=== PATIENT | male | born 1980 | race Caucasian/White ===

== ENCOUNTER 2017-02-21 10:37 | Emergency (ER) | payer BC ==
[2017-02-21 11:00] LABS: BILIRUBIN,URINE NEGATIVE (NEGATIVE); CLARITY,URINE CLEAR (CLEAR); GLUCOSE, URINE (UA) NEGATIVE (NEGATIVE); KETONES,URINE (UA) NEGATIVE (NEGATIVE); LEUKOCYTE ESTERASE, URINE NEGATIVE (NEGATIVE); NITRITE,URINE NEGATIVE (NEGATIVE); OCCULT BLOOD,URINE NEGATIVE (NEGATIVE); PROTEIN,URINE NEGATIVE (NEGATIVE); UROBILINOGEN,URINE 0.2 (NORMAL) E.U./dL (NORMAL)
[2017-02-21 11:11] LABS: BASOPHILS # (AUTO) 0.1 10^3/uL (0.0-0.1); BASOPHILS % (AUTO) 1.4 %; EOSINOPHILS # (AUTO) 0.1 10^3/uL (0.0-0.7); EOSINOPHILS % (AUTO) 1.8 %; HGB - HEMOGLOBIN 16.2 g/dL (14.0-18.0); LYMPHOCYTES # (AUTO) 2.1 10^3/uL (1.5-3.5); LYMPHOCYTES % (AUTO) 35.3 %; MEAN CORPUSCULAR HEMOGLOBIN 31.8 pg (27.0-31.0); MEAN CORPUSCULAR HGB CONC 34.3 g/dL (32.0-36.0); MEAN CORPUSCULAR VOLUME 92.7 fL (80.0-94.0); MEAN PLATELET VOLUME 8.3 fL (7.4-11.4); MONOCYTES # (AUTO) 0.8 10^3/uL (0.0-1.0); MONOCYTES % (AUTO) 13.6 %; NEUTROPHILS # (AUTO) 2.9 10^3/uL (1.5-6.6); NEUTROPHILS % (AUTO) 47.9 %; PLT - PLATELET COUNT 213 10^3/uL (130-450); RED CELL DISTRIBUTION WIDTH 12.5 % (12.0-15.0)
[2017-02-21 11:23] LABS: ALBUMIN 4.7 g/dL (3.2-5.5); ALBUMIN/GLOBULIN RATIO 1.5 (1.0-2.2); BILIRUBIN,TOTAL 1.1 mg/dL (0.2-1.0); CALCIUM 9.1 mg/dL (8.5-10.3); TOTAL PROTEIN 7.8 g/dL (6.7-8.2)
--- NOTE | 2017-02-21 12:20 | ED Physician Documentation ---
PD HPI ABD PAIN - Stated complaint Stated Complaint: ABD PX - Chief complaint Chief Complaint: Abd Pain - History obtained from History obtained from: Patient - History of Present Illness Timing - onset: Other (About a week ago at work he was laying on his stomach and felt a pinch in the right upper quadrant ever since then he has had persistent pain that is better when upright and worse when laying flat. It does not of some seem to be associated with eating. He has not had any changes in his bowel movements. There is slight nausea but no vomiting. He has no history of abdominal surgeries. There is no associated fever. The pain is moved towards the back a little bit, but still on the right side.) Review of Systems Constitutional: denies: Fever, Chills Cardiac: denies: Chest pain / pressure, Palpitations Respiratory: denies: Dyspnea, Cough GI: reports: Abdominal Pain, Nausea, Diarrhea (Few days ago, gone). denies: Vomiting, Constipation PD PAST MEDICAL HISTORY - Past Medical History Past Medical History: No - Past Surgical History Past Surgical History: No - Present Medications Home Medications: Ambulatory Orders Medication Instructions Recorded Confirmed No Known Home Medications [No 02/21/17 02/21/17 Known Home Medications] - Allergies Allergies/Adverse Reactions: Allergies Allergy/AdvReac Type Severity Reaction Status Date / Time No Known Drug Allergies Allergy Verified 02/21/17 10:46 - Social History Does the pt smoke?: No Smoking Status: Never smoker Does the pt drink ETOH?: Yes Does the pt have substance abuse?: No PD ED PE NORMAL - Vitals Vital signs reviewed: Yes - General General: Alert and oriented X 3, No acute distress - Cardiac Cardiac: RRR, No murmur - Respiratory Respiratory: No respiratory distress, Clear bilaterally - Abdomen Abdomen: Other (Very mild right upper quadrant tenderness without guarding or rebound) - Neuro Neuro: Alert and oriented X 3, Normal speech - Psych Psych: Normal mood, Normal affect Results - Vitals Vitals: Vital Signs - 24 hr 02/21/17 02/21/17 10:42 13:21 Temperature 36.7 C 36.2 C L Heart Rate 63 53 L Respiratory 18 18 Rate Blood Pressure 140/86 H 116/77 O2 Saturation 100 99 Oxygen O2 Source Room air - Labs Labs: Laboratory Tests 02/21/17 02/21/17 02/21/17 10:45 11:04 11:04 WBC 6.0 RBC 5.10 Hgb 16.2 Hct 47.3 MCV 92.7 MCH 31.8 H MCHC 34.3 RDW 12.5 Plt Count 213 MPV 8.3 Neut # 2.9 Lymph # 2.1 [place] # 0.8 Eos # 0.1 Baso # 0.1 Absolute Nucleated RBC 0.00 Nucleated RBC % 0.0 Sodium 136 Potassium 3.3 L Chloride 103 Carbon Dioxide 26 Anion Gap 7.0 BUN 13 Creatinine 1.0 Estimated GFR (MDRD) 84 L Glucose 98 Calcium 9.1 Total Bilirubin 1.1 H AST 21 ALT 18 Alkaline Phosphatase 76 Total Protein 7.8 Albumin 4.7 Globulin 3.1 Albumin/Globulin Ratio 1.5 Lipase 27 Urine Color YELLOW Urine Clarity CLEAR Urine pH 7.0 Ur Specific [place] 1.010 Urine Protein NEGATIVE Urine Glucose (UA) NEGATIVE Urine Ketones NEGATIVE Urine Occult Blood NEGATIVE Urine Nitrite NEGATIVE Urine Bilirubin NEGATIVE Urine Urobilinogen 0.2 (NORMAL) Ur Leukocyte Esterase NEGATIVE Ur Microscopic Review NOT INDICATED Urine Culture Comments NOT INDICATED - Rads (name of study) RUQ sono Radiology: EMP read contemporaneously (Cloth Finisher read comments on fatty liver, however the formal read is negative.) PD MEDICAL DECISION MAKING - ED course ED course: Given the history, specifically that it started while he was in a certain specific position at work and using a wrench while on his stomach this is likely musculoskeletal. Ultrasound potentially shows fatty liver, otherwise negative. Labs are reassuring. He does binge drink and he is advised his slowdown on the drinking. Departure - Departure Disposition: 01 Home, Self Care Clinical Impression: Fatty liver Abdominal pain Qualifiers: Abdominal location: right upper quadrant Qualified Code(s): R10.11 - Right upper quadrant pain Condition: Good Record reviewed to determine appropriate education?: Yes Instructions: ED Abdominal Pain Unkn Cause Comments: Ibuprofen as needed for pain, Call your doctor to arrange a follow-up appointment, make the next available appointment. In the interim, return anytime if worse or if new symptoms develop. Your blood pressure was elevated today on check into the emergency department. This does not mean that you have hypertension, it is a common phenomenon to come to the emergency department and have elevated blood pressure. I recommend that you see your primary care physician within the week to have it rechecked when you are feeling better. Discharge Date/Time: 02/21/17 13:26
[2017-02-21 13:22] VITALS: BP 116/77
--- NOTE | 2017-02-21 16:10 | Ultrasound Report ---
DATE OF SERVICE: 02/21/2017 RIGHT UPPER QUADRANT ULTRASOUND: 02/21/2017 CLINICAL INDICATION: Pain. TECHNIQUE: Real-time scanning was performed with outreach representative static images obtained. FINDINGS: The liver measures 16 cm. Hepatic echogenicity is normal. No intrahepatic biliary dilatation or focal parenchymal lesion is present. The common bile duct measures 5 mm. The gallbladder is normal. The right kidney measures 12 cm, and demonstrates no hydronephrosis. No free fluid is present. IMPRESSION: NORMAL RIGHT UPPER QUADRANT ULTRASOUND. TD: 02/21/2017 17:09
== END 2017-02-21 13:26 | disposition home or self-care (01) ==
LOC: ED 10:37
DX: R10.11 Right upper quadrant pain (principal); K76.0 Fatty (change of) liver, not elsewhere classified; R03.0 Elevated blood-pressure reading, without diagnosis of hypertension
CPT/HCPCS: 36415; 76705; 80053; 81001; 81003; 83690; 85025; 87086; 99283

== ENCOUNTER 2021-12-05 08:00 | Outpatient (CLI) | payer BC ==
--- NOTE | 2021-12-05 09:04 | XRAY Report ---
PROCEDURE: Knee 3 View LT INDICATIONS: PUNCTURE WOUND TO LEFT KNEE TECHNIQUE: 3 views of the left knee(s) were acquired. COMPARISON: None. FINDINGS: Bones: No fractures or dislocations. No suspicious bony lesions. Minimal medial compartment narrow ing. Soft tissues: No joint effusion. No suspicious soft tissue calcifications. No radiopaque foreign b joanne. IMPRESSION: No visualized acute fracture or dislocation. However, occult injury cannot be excluded. Recommend short interval imaging follow-up in 7-10 days as clinically indicated for additional evalua tion. Reviewed by: Nhung Wynn MD on 12/05/2021 9:03 AM PDT Approved by: Nhung Wynn MD on 12/05/2021 9:03 AM PDT Station ID: [id number]
== END 2021-12-05 23:59 | disposition home or self-care (01) ==
LOC: DI.S 08:00
PROVIDERS: ATTEND Physician Assistant Medical
DX: S81.042A Puncture wound with foreign body, left knee, initial encounter (principal)

== ENCOUNTER 2021-12-14 08:00 | Outpatient (CLI) | payer BC | END 2021-12-14 23:59 | disposition home or self-care (01) | LOC: LAB.S 08:00 | PROVIDERS: ATTEND Registered Nurse | DX: S81.042A Puncture wound with foreign body, left knee, initial encounter (principal); M70.52 Other bursitis of knee, left knee; L03.116 Cellulitis of left lower limb | CPT/HCPCS: 87070; 87205 ==